=== PATIENT | female | born 1985 | race Caucasian/White ===

== ENCOUNTER 2021-01-02 18:40 | Emergency (ER) | payer BC, MEDICAID ==
[~2021-01-02] VITALS: Ht 175.3 cm; Wt 75.0 kg
[2021-01-02 18:54] VITALS: BP 122/80
== END 2021-01-02 20:17 | disposition home or self-care (01) ==
LOC: ER 18:40
DX: U07.1 COVID-19 (principal); R05 Cough
CPT/HCPCS: 87635; 99283; C9803